=== PATIENT | male | born 1960 | race Caucasian/White ===

== ENCOUNTER → 2017-06-20 | Outpatient (REF) | payer OTHER | LOC: M LAB REF 16:46 | PROVIDERS: ATTEND Physician Assistant | DX: J02.9 Acute pharyngitis, unspecified (principal) ==

== ENCOUNTER → 2018-10-26 | Outpatient (CLI) | payer OTHER ==
--- NOTE | 2018-10-26 09:22 | REP ---
Soft-tissue ultrasound left supra-auricular region. History: Palpable lump. Nontender. Findings: Scanning of the area of the palpable lump demonstrates a oval-shaped hypoechoic area beneath the dermis. This measures 16 x 7 x 13 mm. No Doppler flow is seen within the lesion. There is some enhanced through transmission. The long axis is parallel to the skin. Impression: The lesion is not a simple cyst. Possibilities include sebaceous cyst, atypical lymph node, or other lesion. Electronically Signed by Ron Salmeron MD 10/26/2018 09:13 A
== END ==
LOC: M RAD 06:17
PROVIDERS: ATTEND Physician Assistant Medical
DX: R59.9 Enlarged lymph nodes, unspecified (principal)

== ENCOUNTER → 2019-04-03 | Outpatient (CLI) | payer OTHER ==
--- NOTE | 2019-04-03 15:44 | REP ---
Clinical: Nonacute left knee pain. Technique: AP, lateral, bilateral oblique and sunrise views of the left knee. Findings: Moderate arthritic changes include subchondral sclerosis to the tibial plateau, spurring to the tibial spines, osteophytosis, and chondrocalcinosis. No acute fracture or dislocation. No effusion. Impression: Moderate arthritic changes primarily involving the tibiofemoral joint space. Electronically Signed by Gino Kamara MD 04/03/2019 03:35 P
== END ==
LOC: M RAD 15:01
PROVIDERS: ATTEND Physician Assistant Medical
DX: M17.12 Unilateral primary osteoarthritis, left knee (principal)

== ENCOUNTER 2019-04-25 10:30 | Day surgery (SDC) | payer OTHER ==
[~2019-04-25] VITALS: Ht 175.3 cm; Wt 82.1 kg
[~2019-04-25 10:30] MED LIST: CRES10TA PO; D 10CHW PO; MULTCAP PO; NS 1,000 ML IV ONE
[2019-04-25] MEDS ORDERED: PROPOFOL 200 MG/20 ML VIAL As Ordered ONE (11:10)
[2019-04-25] MEDS ORDERED: LIDOCAINE 2% INJ 100 MG/5 ML SDV (FOR ANES.) As Ordered ONE (11:10)
[2019-04-25] MEDS ORDERED: CO Q10CA PO (11:21)
[2019-04-25] MEDS ORDERED: NIAC100T9 PO (11:21)
[2019-04-25] MEDS ORDERED: MIXE1CAP PO (11:21)
[2019-04-25] MEDS ORDERED: fentaNYL 100 MCG/2 ML INJECTION (J3010) As Ordered ONE (12:06)
--- NOTE | 2019-04-25 12:22 | ROOR ---
Patient Name: Wm Crowley Procedure Date: 04/25/2019 12:05 PM Date of : 1960 Age: 59 Room: [facility] Gender: Male Note Status: Finalized Procedure: Upper Endoscopy + Biopsies Indications: Heartburn, Exclusion of Dominguez's esophagus Providers: Cory Taylor MD Referring MD: Sushant [facility] Sushant [facility], Admin. Requesting Provider: Medicines: Monitored Anesthesia Care Complications: No immediate complications. Procedure: Pre-Anesthesia Assessment: - The heart rate, respiratory rate, oxygen saturations, blood pressure, adequacy of pulmonary ventilation, and response to care were monitored throughout the procedure. The Endoscope was introduced through the mouth, and advanced to the second part of duodenum. The upper GI endoscopy was accomplished without difficulty. The patient tolerated the procedure well. Findings: The Z-line was variable and was found 42 cm from the incisors. Multiple biopsies were obtained with cold forceps for evaluation to rule out Dominguez's Esophagus randomly at the gastroesophageal junction. No other significant abnormalities were identified in a careful examination of the stomach. The exam of the duodenum was otherwise normal. Impression: - Z-line variable, 42 cm from the incisors. - Multiple biopsies were obtained at the gastroesophageal junction. - The examination was otherwise normal. Recommendation: - Patient has a contact number available for emergencies. The signs and symptoms of potential delayed complications were discussed with the patient. Return to normal activities tomorrow. Written discharge instructions were provided to the patient. - High fiber diet. - Discharge patient to home. - Follow an antireflux regimen. - Continue present medications. - Await pathology results. - Telephone GI clinic for pathology results in 1 week. - Return to referring physician. - The findings and recommendations were discussed with the patient's family. Cory Taylor MD Cory Taylor MD 04/25/2019 12:22:07 PM Electronically signed by Cory Taylor MD Number of Addenda: 0 Note Initiated On: 04/25/2019 12:05 PM Estimated Blood Loss: Estimated blood loss: none.
[2019-04-25 12:49] VITALS: BP 106/66
== END 2019-04-25 12:52 | disposition home or self-care (01) ==
LOC: M OPP 10:30
PROVIDERS: ATTEND Internal Medicine Gastroenterology
DX: K22.8 Other specified diseases of esophagus (principal); R12 Heartburn
CPT/HCPCS: 43239; 88305; J3010

== ENCOUNTER → 2019-05-22 | Outpatient (CLI) | payer OTHER ==
[~2019-05-22] MED LIST changes: +CO Q10CA PO; +MIXE1CAP PO; +NIAC100T9 PO; -NS 1,000 ML IV ONE
--- NOTE | 2019-05-22 18:38 | REP ---
MRI RIGHT KNEE: TECHNIQUE: Axial proton density fat saturation, sagittal proton density T2 STIR, water excitation, coronal proton density, proton density fat saturation. There is an extensive complex tear of the anterior and posterior horns of the medial meniscus with a bucket handle configuration. Lateral meniscus appears intact. Cruciate and collateral ligaments are intact. Extensor mechanism is intact. There is mild diffuse chondromalacia of the patella. There is moderately severe chondromalacia of the medial femoral condyle and tibial plateau with associated subchondral marrow edema. There is mild to moderate diffuse chondromalacia of the lateral femoral condyle and tibial plateau. This is most significant anteriorly and posteriorly in the lateral femoral condyle with associated subchondral marrow edema at these locations. There is a small joint effusion. There is no popliteal cyst. There appears to be a subcentimeter joint body at the posterior margin of the joint centrally. There are two subcentimeter joint bodies at the anteromedial joint margin. IMPRESSION: Extensive complex bucket handle tear anterior and posterior horns medial meniscus. Cruciate and collateral ligaments intact. Global chondromalacia which is moderately severe in the medial compartment with associated subchondral marrow edema. Moderate chondromalacia anterior and posterior lateral femoral condyle with mild subchondral marrow edema. Small joint effusion. Subcentimeter joint body posteriorly and centrally. There are two subcentimeter joint bodies at the anteromedial joint margin. Electronically Signed by Jr Leung MD 05/22/2019 06:51 P
== END ==
LOC: M RAD 14:59
PROVIDERS: ATTEND Orthopaedic Surgery Sports Medicine
DX: S83.232A Complex tear of medial meniscus, current injury, left knee, initial encounter (principal); X58.XXXA Exposure to other specified factors, initial encounter; Y92.9 Unspecified place or not applicable; M25.461 Effusion, right knee; M94.262 Chondromalacia, left knee

== ENCOUNTER → 2019-08-17 | Outpatient (CLI) | payer OTHER ==
--- NOTE | 2019-08-18 10:02 | ECGEPIP ---
[facility] Test Date: 2019-08-17 Pat Name: JIMI AHUJA Department: Room: - Gender: Male [employer] Installer: JAVED : 1960 Requested By: Grady Basilio @ [facility] Order Number: [id number] Reading MD: Frank Hanley Measurements Intervals [place] Rate: 53 P: 66 UT: 155 QRS: -17 QRSD: 112 T: 18 QT: 447 QTc: 421 Interpretive Statements SINUS BRADYCARDIA MODERATE INTRAVENTRICULAR CONDUCTION DELAY NO PRIOR Electronically Signed on 08-18-2019 10:01:57 EDT by Frank Hanley
== END ==
LOC: M EKG 06:51
PROVIDERS: ATTEND Orthopaedic Surgery
DX: Z01.810 Encounter for preprocedural cardiovascular examination (principal)

== ENCOUNTER → 2019-09-06 | Outpatient (RCR) | payer OTHER | LOC: M PT 08-27 12:20 | PROVIDERS: ATTEND Orthopaedic Surgery | DX: Z98.890 Other specified postprocedural states (principal) ==

== ENCOUNTER 2019-10-03 15:15 | Outpatient (RCR) | payer OTHER | END 2019-10-06 | LOC: M PT 15:15 | PROVIDERS: ATTEND Orthopaedic Surgery | DX: Z47.89 Encounter for other orthopedic aftercare (principal) ==

== ENCOUNTER 2019-10-23 15:15 | Outpatient (RCR) | payer OTHER | END 2019-11-06 | disposition home or self-care (01) | LOC: M PT 15:15 | PROVIDERS: ATTEND Orthopaedic Surgery | DX: Z51.89 Encounter for other specified aftercare (principal); Z48.89 Encounter for other specified surgical aftercare ==

== ENCOUNTER → 2023-04-19 | Outpatient (CLI) | payer OTHER | LOC: M RAD 13:59 | PROVIDERS: ATTEND Physician Assistant | DX: R10.2 Pelvic and perineal pain (principal) ==

== ENCOUNTER → 2023-05-11 | Outpatient (REF) | payer OTHER ==
[~2023-05-11] MED LIST changes: +ASCO500T PO; +CENT1TAB2 PO; +EQL50TAB2 PO; +IBUP200C25 PO; +OMEG10002 PO; +OMEP40CA5 PO; +QC F0.52 PO; +ROSU40TA4 PO
== END ==
LOC: M LAB REF 22:24
PROVIDERS: ATTEND Physician Assistant
DX: R53.83 Other fatigue (principal); R50.9 Fever, unspecified

== ENCOUNTER 2023-07-10 18:10 | Emergency (ER) | payer OTHER ==
[~2023-07-10] VITALS: Ht 175.3 cm; Wt 82.6 kg
[2023-07-10] MEDS ORDERED: BOOSTRIX VACCINE (TETANUS/DIPHTH/ACEL. PERTUSSIS) 0.5ML SYR IM.IMMUN ONE (19:35)
[2023-07-10 19:46] VITALS: BP 134/70; TEMP 96.9; O2SAT 100
== END 2023-07-10 19:47 | disposition home or self-care (01) ==
LOC: M ED 18:10
DX: S01.01XA Laceration without foreign body of scalp, initial encounter (principal); W20.8XXA Other cause of strike by thrown, projected or falling object, initial encounter; Y92.009 Unspecified place in unspecified non-institutional (private) residence as the place of occurrence of the external cause; E78.5 Hyperlipidemia, unspecified; Z79.899 Other long term (current) drug therapy; Z88.8 Allergy status to other drugs, medicaments and biological substances

== ENCOUNTER 2023-08-16 10:36 | Day surgery (SDC) | payer OTHER ==
[~2023-08-16] VITALS: Ht 175.3 cm; Wt 79.8 kg
[~2023-08-16 10:36] MED LIST changes: +ACETAMINOPHEN 1000MG 100ML IV BAG As Ordered ONE; +ASPI81TA26 PO; +LIDOCAINE 2% 100MG/5ML SDV (FOR ANES.) As Ordered ONE; +META28.32 PO; +MIDAZOLAM INJ 2MG/2ML VIAL As Ordered ONE; +ONDANSETRON 4MG 2ML VIAL As Ordered ONE; +ROCURONIUM BROMIDE 50MG/5ML VIAL As Ordered ONE; +VITA-243 PO; +ceFAZolin SOD 2 GM in IV 1 EA IV ONE; +fentaNYL 100 MCG/2 ML INJECTION As Ordered ONE; +propofoL 200 MG/20 ML VIAL As Ordered ONE
[2023-08-16 10:56] LABS: HEMATOCRIT 42.1 % (42.0-52.0); HEMOGLOBIN 14.1 g/dl (13.5-17.5); MEAN CORPUSCULAR HEMOGLOBIN 31.1 pg (27.0-33.0); MEAN CORPUSCULAR HGB CONC 33.5 g/dl (32.0-36.5); MEAN CORPUSCULAR VOLUME 92.9 fl (80.0-96.0); PLATELET COUNT, AUTOMATED 303 10^3/uL (150-450); RED BLOOD COUNT 4.53 10^6/uL (4.30-6.10)
[2023-08-16] MEDS ORDERED: LR 1,000 ML IV SCH ×2 (11:20→12:40)
[2023-08-16 11:22] LABS: BLOOD UREA NITROGEN 14 MG/DL (9-23); CALCIUM LEVEL 9.4 MG/DL (8.3-10.6); CARBON DIOXIDE LEVEL 30 MMOL/L (20-31); CHLORIDE LEVEL 107 MMOL/L (98-107); CREATININE FOR GFR 1.13 MG/DL (0.70-1.30); GLOMERULAR FILTRATION RATE > 60.0 (>49); GLUCOSE, FASTING 100 MG/DL (74-106); POTASSIUM SERUM 4.5 MMOL/L (3.5-5.1); SODIUM LEVEL 142 MMOL/L (136-145)
[2023-08-16] MEDS ORDERED: GLYCOPYRROLATE INJ 0.2 MG/ML 2 ML VIAL As Ordered ONE (11:32)
[2023-08-16] MEDS ORDERED: SUGAMMADEX SODIUM 500 MG/5 ML VIAL (BRIDION) As Ordered ONE (12:19)
[2023-08-16] MEDS ORDERED: KETOROLAC 60MG 2ML VIAL As Ordered ONE (12:19)
[2023-08-16] MEDS ORDERED: ONDANSETRON 4MG 2ML VIAL IV PRN (12:40)
[2023-08-16] MEDS ORDERED: fentaNYL 100 MCG/2 ML INJECTION IV PRN (12:40)
[2023-08-16] MEDS ORDERED: oxyCODONE 5MG TAB PO PRN (12:40)
[2023-08-16] MEDS ORDERED: HYDROMORPHONE HCL 0.5 MG/ 0.5 ML SYRINGE IV PRN (12:40)
[2023-08-16] MEDS ORDERED: traMADol 50 MG TAB PO PRN (13:15)
[2023-08-16] MEDS ORDERED: NS 1,000 ML IV SCH (13:15)
[2023-08-16 15:00] VITALS: BP 126/63; TEMP 98.4; O2SAT 100
== END 2023-08-16 15:05 | disposition home or self-care (01) ==
LOC: M SDC 10:36
PROVIDERS: ATTEND Surgery
DX: K40.90 Unilateral inguinal hernia, without obstruction or gangrene, not specified as recurrent (principal); K21.9 Gastro-esophageal reflux disease without esophagitis; E78.00 Pure hypercholesterolemia, unspecified; Z88.5 Allergy status to narcotic agent; Z79.899 Other long term (current) drug therapy; Z79.82 Long term (current) use of aspirin
CPT/HCPCS: 36415; 49650; 80048; 85027; C1781; J0131; J0665; J0690; J1100; J1885; J2250; J2405; J3010; S2900

== ENCOUNTER → 2023-10-27 | Outpatient (REF) ==
[~2023-10-27] MED LIST changes: -ACETAMINOPHEN 1000MG 100ML IV BAG As Ordered ONE; -LIDOCAINE 2% 100MG/5ML SDV (FOR ANES.) As Ordered ONE; -MIDAZOLAM INJ 2MG/2ML VIAL As Ordered ONE; -ONDANSETRON 4MG 2ML VIAL As Ordered ONE; -ROCURONIUM BROMIDE 50MG/5ML VIAL As Ordered ONE; -ceFAZolin SOD 2 GM in IV 1 EA IV ONE; -fentaNYL 100 MCG/2 ML INJECTION As Ordered ONE; -propofoL 200 MG/20 ML VIAL As Ordered ONE
== END ==
LOC: M PLAIMG 13:53
PROVIDERS: ATTEND Internal Medicine
DX: R06.02 Shortness of breath (principal)

== ENCOUNTER → 2023-11-09 | Outpatient (REF) | payer OTHER | LOC: M LAB REF 11:08 | PROVIDERS: ATTEND Physician Assistant | DX: B34.9 Viral infection, unspecified (principal) ==

== ENCOUNTER 2024-05-29 07:26 | Day surgery (SDC) | payer OTHER ==
[~2024-05-29] VITALS: Ht 175.3 cm; Wt 80.4 kg
[~2024-05-29 07:26] MED LIST changes: +B-12100010 PO; +LORA-1041 PO; +MELO15TA28 PO; -ROSU40TA4 PO; +ROSU40TA63 PO; +SILD100T PO
[2024-05-29] MEDS ORDERED: LR 1,000 ML IV SCH ×2 (07:40→10:35)
[2024-05-29] MEDS ORDERED: LIDOCAINE 2% 100MG/5ML SDV (FOR ANES.) As Ordered ONE (08:15)
[2024-05-29] MEDS ORDERED: propofoL 200 MG/20 ML VIAL As Ordered ONE (08:15)
[2024-05-29] MEDS ORDERED: MIDAZOLAM INJ 2MG/2ML VIAL As Ordered ONE (08:15)
[2024-05-29] MEDS ORDERED: fentaNYL 100 MCG/2 ML INJECTION As Ordered ONE (08:15)
[2024-05-29] MEDS ORDERED: ACETAMINOPHEN 1000MG 100ML IV BAG As Ordered ONE (08:16)
[2024-05-29] MEDS ORDERED: ROCURONIUM BROMIDE 50MG/5ML VIAL As Ordered ONE (09:20)
[2024-05-29] MEDS: ceFAZolin SOD 2 GM in IV 1 EA IV ONE (09:40)
[2024-05-29] MEDS ORDERED: ONDANSETRON 4MG 2ML VIAL As Ordered ONE (09:54)
[2024-05-29] MEDS ORDERED: SUGAMMADEX SODIUM 500 MG/5 ML VIAL (BRIDION) As Ordered ONE (09:54)
[2024-05-29] MEDS ORDERED: KETOROLAC 60MG 2ML VIAL As Ordered ONE (09:54)
[2024-05-29] MEDS ORDERED: GLYCOPYRROLATE INJ 0.2 MG/ML 2 ML VIAL As Ordered ONE (10:10)
[2024-05-29] MEDS ORDERED: fentaNYL 100 MCG/2 ML INJECTION IV PRN (10:35)
[2024-05-29] MEDS ORDERED: oxyCODONE 5MG TAB PO PRN (10:35)
[2024-05-29] MEDS ORDERED: ONDANSETRON 4MG 2ML VIAL IV PRN (10:35)
[2024-05-29] MEDS ORDERED: HYDROMORPHONE HCL 0.5 MG/ 0.5 ML SYRINGE IV PRN (10:35)
[2024-05-29] MEDS ORDERED: NS 1,000 ML IV SCH (11:10)
[2024-05-29] MEDS ORDERED: traMADol 50 MG TAB PO PRN (11:10)
[2024-05-29 12:28] VITALS: BP 143/64; TEMP 97.5; O2SAT 100
== END 2024-05-29 12:30 | disposition home or self-care (01) ==
LOC: M SDC 07:26
PROVIDERS: ATTEND Surgery
DX: K43.2 Incisional hernia without obstruction or gangrene (principal); E78.00 Pure hypercholesterolemia, unspecified; K21.9 Gastro-esophageal reflux disease without esophagitis; Z79.899 Other long term (current) drug therapy; Z79.82 Long term (current) use of aspirin; Z88.8 Allergy status to other drugs, medicaments and biological substances
CPT/HCPCS: 49591; 88302; C9290; J0131; J0665; J0690; J1100; J1596; J1885; J2250; J2405; J3010

== ENCOUNTER → 2024-06-28 | Outpatient (CLI) | payer OTHER ==
[~2024-06-28] MED LIST changes: +METHACHOLINE KIT (6 VIAL.NEB PREMIX) INH ONE
== END ==
LOC: M CARPUL 14:23
PROVIDERS: ATTEND Internal Medicine Critical Care Medicine
DX: J45.20 Mild intermittent asthma, uncomplicated (principal)
CPT/HCPCS: 94070; 95070; J7674

== ENCOUNTER → 2024-09-27 | Outpatient (REF) ==
[~2024-09-27] MED LIST changes: -METHACHOLINE KIT (6 VIAL.NEB PREMIX) INH ONE; -ROSU40TA63 PO; +ROSU40TA81 PO
== END ==
LOC: M PLAIMG 09:02
PROVIDERS: ATTEND Internal Medicine
DX: R06.02 Shortness of breath (principal)

== ENCOUNTER → 2024-10-03 | Outpatient (CLI) | payer OTHER | LOC: M EKG 11:05 | PROVIDERS: ATTEND Internal Medicine Critical Care Medicine | DX: R07.9 Chest pain, unspecified (principal); R00.1 Bradycardia, unspecified ==